=== PATIENT | female | born 1940 | race Caucasian/White ===

== ENCOUNTER 2016-04-16 07:56 | Emergency (ER) | payer OTHER, MEDICARE ==
[2016-04-16 08:03] VITALS: BP 130/68; PULSE 90; RESP 16; TEMP 98.2; O2SAT 96
--- NOTE | 2016-04-16 08:33 | EDPHY ---
H & P Smoking Status: Former smoker Time Seen by Provider: 04/16/16 08:06 HPI/ROS: CHIEF COMPLAINT: Drainage left eye, sinus pain HISTORY OF PRESENT ILLNESS: 76-year-old female presents to the emergency department by private vehicle with her complaining of drainage to her left eye over the last 2 days. The patient states that she woke up yesterday morning with mattering and purulent drainage from her left eye. She denies any double vision or blurry vision. Denies symptoms in the right eye. Denies any trauma. Over last several days she has had nasal congestion and rhinorrhea. No fevers or chills. No headache. No neck or back pain. No chest pain or difficulty breathing. She has occasional cough so seated with postnasal drip. She did try guaifenesin without any relief. She is concerned because [place]. REVIEW OF SYSTEMS: Constitutional: No fever, no chills. Eyes: Drainage left eye as above. No double or blurry vision. ENT: No sore throat. Respiratory: No cough, no shortness of breath. Cardiac: No chest pain. Gastrointestinal: No abdominal pain, vomiting or diarrhea. Genitourinary: No dysuria. Musculoskeletal: No neck or back pain. Skin: No rashes. Neurological: No headache. (Clare Morse) Past Medical/Surgical History: Traumatic brain injury, associated seizures, C-spine surgery (Clare Morse) Social History: from [place] (Clare Morse) Physical Exam: General Appearance: Alert, no distress. 36.8 temperature, 96% on room air, 130/ 68 Eyes: Extraocular motions are all intact. Pupils: equal round and reactive to light EOMI Lids: Edema noted to the left upper eyelid. Right eyelids appears normal. Skin: no proptosis, no periorbital erythema or swelling, no vesicles. No warmth or signs of cellulitis. Conjunctivae: Conjunctival injection with purulent discharge noted in the left eye. Cornea: Fluorescein and slit-lamp exam not performed. Anterior chamber:normal, no hyphema or hypopyon ENT: Mouth: Mucous membranes moist. Respiratory: No wheezing, rhonchi, or rales, lungs are clear to auscultation. Cardiovascular: Regular rate and rhythm. Gastrointestinal: Abdomen is soft and nontender, no masses, no rebound or guarding, bowel sounds normal. Neurological: Alert and oriented x 3, cranial nerves II through XII grossly intact Skin: Warm and dry, no rashes. Musculoskeletal: Nontender to palpate along the cervical, thoracic or lumbar spine. Neck is supple. Extremities: Full range of motion and no peripheral edema. Psychiatric: Patient is oriented X 3, there is no agitation. (Clare Morse) Constitutional: Initial Vital Signs Temperature (C) 36.8 C 04/16/16 07:59 Heart Rate 90 04/16/16 07:59 Respiratory Rate 16 04/16/16 07:59 Blood Pressure 130/68 H 04/16/16 07:59 O2 Sat (%) 96 04/16/16 07:59 O2 Delivery Mode Room Air Allergies/Adverse Reactions: phenytoin sodium [From Dilantin] Allergy (Verified 04/16/16 08:04) phenytoin sodium extended [From Dilantin] Allergy (Verified 04/16/16 08:04) Home Medications: Medication Instructions Recorded Ofloxacin 0.3% [Ocuflox] 1 - 2 drops EACHEYE QID 7 Days 04/16/16 Zimpat 04/16/16 lamoTRIgine [LamICTAL 100 MG (*)] 100 mg PO 04/16/16 Medical Decision Making ED Course/Re-evaluation: 76-year-old female presents to the emergency department with purulent discharge redness to the left eye. She has no visual complaints. Patient will be treated with Ocuflox drops to both eyes. I encouraged good hand washing. Patient also has URI symptoms. The patient has never had sinus infection in the past. She did try [id number] guaifenesin however she did not tolerate this medication. She apparently is very sensitive to medicines. Since she has been symptomatic for 2-3 days I do not think antibiotics are indicated. She has no facial pain with palpation. She does have some mild nasal congestion. I recommended drinking plenty of fluids and using humidified air if needed. I encouraged her to return if she developed fever, facial pain, dental pain, chest pain or difficulty breathing, or if she felt worse in any way. She was comfortable with this plan. (Clare Morse) I did not see this patient while she was in the emergency department. However her care was discussed with the PA while the patient was in the department. I agree with treatment plan and management (Sai Kahn) Differential Diagnosis: Including but not limited to viral upper respiratory infection, conjunctivitis, corneal ulcer, cellulitis, periorbital cellulitis, bronchitis, pneumonia, sinusitis, allergic rhinitis (MiniClare Rowan) Departure - Departure Disposition: Home, Routine, Self-Care Clinical Impression: Acute conjunctivitis of left eye Qualifiers: Acute conjunctivitis type: bacterial Qualified Code(s): H10.32 - Unspecified acute conjunctivitis, left eye Upper respiratory infection Qualifiers: URI type: unspecified URI Qualified Code(s): J06.9 - Acute upper respiratory infection, unspecified Condition: Good Instructions: Upper Respiratory Infection (ED), Conjunctivitis (ED) Additional Instructions: Ocuflox drops QID for one week to both eyes. Good hand washing as discussed. DRINK A LOT OF WATER WHILE YOU ARE AT [place]! Steam/humidifier as discussed. Return if you develop fever, facial pain, chest pain, difficulty breathing, or if you feel worse in any way. Referrals: Jayleen Tafoya MD [Medical Doctor] - 2-3 days, if not improved ( Neurosurgical Physician Assistant on-call) Prescriptions: Ofloxacin 0.3% [Ocuflox] 1 - 2 drops EACHEYE QID 7 Days
== END 2016-04-16 08:48 | disposition home or self-care (01) ==
DX: H10.32 Unspecified acute conjunctivitis, left eye (principal); J06.9 Acute upper respiratory infection, unspecified; Z87.891 Personal history of nicotine dependence